=== PATIENT | female | born 1965 | race Caucasian/White ===

== ENCOUNTER → 2023-10-24 07:26 | Outpatient (CLI) | payer OTHER, SELFPAY ==
--- NOTE | 2023-10-24 07:30 | DI.MRI.S_ITS ---
PROCEDURE: MR WRIST LT WO CON INDICATIONS: JOINT DISORDERS LEFT WRIST TECHNIQUE: Noncontrast coronal proton density fast spin echo and T2 fast spin echo with fat saturation; coronal 3-D gradient echo, axial T1 spin echo and T2 fast spin echo with fat saturation, sagittal T1 spin echo through the wrist. COMPARISON: [facility] Outside Film, CR, XR WRIST 3+ VIEWS RIGHT, 08/07/2023, 9:38. FINDINGS: Image quality: Excellent. Bones and cartilage: The carpal bones are normally aligned. No acute fracture or dislocation. No gross marrow edema. Nonspecific subcortical T2 hyperintense areas are noted involving ulnar aspect of proximal lunate and distal portion of the capitate. Mild wrist joint osteoarthritic changes are seen with joint space narrowing and subchondral sclerosis. No evidence of avascular necrosis. Carpal ligaments: The scapholunate and lunotriquetral ligaments appear intact. In the absence of intra-articular contrast, the extrinsic carpal ligaments are not well identified. On sagittal images, the pisohamate ligament appears intact. Triangular fibrocartilage complex: There is subtle signal abnormality involving triangular fibrocartilage near its ulnar insertion concerning for subtle TFC tear. The adjacent meniscal homolog appears normal in the absence of intra-articular contrast. The extensor carpi ulnaris tendon is mildly thickened at the level of ulnar styloid. Tendons and soft tissues: The carpal tunnel structures appear normal, including the median nerve. The ulnar nerve appears normal within Guyon's canal. Small amount of fluid distending 2nd extensor tendon sheath at the level of proximal carpal road is noted. No soft tissue ganglion cysts. IMPRESSION: 1. Mild wrist joint osteoarthritis. No fracture or dislocation. No evidence of avascular necrosis. T2 hyperintense signal area involving lunate and capitate and may represent subcortical cysts. Erosion secondary to inflammatory arthropathy cannot be entirely excluded. 2. Suggestion of subtle triangular fibrocartilage complex tear near its ulnar insertion. 3. Tendinosis involving extensor carpi ulnaris tendon at the level of ulnar styloid. 4. Low-grade tenosynovitis involving 2nd extensor compartment over dorsal aspect of proximal carpal bones. 5. Scapholunate and lunotriquetral ligaments are intact. Dictated by: Cassius Francois M.D. on 10/26/2023 at 10:53 Approved by: Cassius Francois M.D. on 10/26/2023 at 10:59
== END ==
LOC: MRI 07:29
PROVIDERS: PCP Nurse Practitioner Family; Referring Provider Orthopaedic Surgery; Visit Provider Orthopaedic Surgery
DX: M25.832 Other specified joint disorders, left wrist (principal); M19.032 Primary osteoarthritis, left wrist; M65.832 Other synovitis and tenosynovitis, left forearm
CPT/HCPCS: 73221